=== PATIENT | female | born 1960 | race Caucasian/White ===

== ENCOUNTER → 2019-10-28 07:27 | Outpatient (CLI) | payer OTHER, SELFPAY ==
--- NOTE | ~2019-10-28 | MM_ITS ---
EXAMINATION: MM screening [facility] BI w ferm[facility] HISTORY: Screening mammogram TECHNIQUE: Craniocaudal and mediolateral oblique 3-D tomosynthesis images were obtained and synthetic 2-D images were generated. CAD analysis was submitted and interpreted. COMPARISON: 10/23/2018, 10/21/2017, 10/08/2016 BREAST PARENCHYMAL COMPOSITION: There are scattered areas of fibroglandular density. FINDINGS: RIGHT BREAST: There is possible architectural distortion in the middle third of the upper breast best appreciated 6 cm from the nipple on the mediolateral oblique view. LEFT BREAST: There is no evidence of suspicious mass, calcification, or architectural distortion to s uggest malignancy. There has been no significant interval change. IMPRESSION: 1. Possible right breast architectural distortion. 2. Additional mammographic views and possible breast ultrasound are recommended. BI-RADS Category 0: Incomplete: Needs additional imaging evaluation. Reviewed, dictated and finalized at location A. IMPRESSION: 1. Possible right breast architectural distortion. 2. Additional mammographic views and possible breast ultrasound are recommended . BI-RADS Category 0: Incomplete: Needs additional imaging evaluation.
== END ==
PROVIDERS: PCP Family Medicine; Visit Provider Nurse Practitioner Obstetrics & Gynecology
DX: Z12.31 Encounter for screening mammogram for malignant neoplasm of breast (principal); R92.8 Other abnormal and inconclusive findings on diagnostic imaging of breast
CPT/HCPCS: 77063; 77067

== ENCOUNTER → 2019-11-09 14:18 | Outpatient (CLI) | payer OTHER, SELFPAY ==
--- NOTE | ~2019-11-09 | MMUS_ITS ---
EXAMINATION: MM diagnostic mammo unilat RT, US breast RT limited HISTORY: Follow-up right breast asymmetry TECHNIQUE: Additional 3-D tomosynthesis images of the right breast were performed and synthetic 2-D i mages were generated. CAD analysis was submitted and interpreted. High resolution right breast ultras ound was performed. COMPARISON: Comparison to multiple prior studies sequentially, with oldest reviewed study dated 10/2015. FINDINGS: MAMMOGRAPHIC FINDINGS: Breast composed of scattered areas of fibroglandular density. The right breast asymmetry on MLO view is apparent with spot compression and mediolateral views. No discrete mass is identified. No suspicio us calcifications or definite architectural distortion. ULTRASOUND: Limited right breast ultrasound: At 9:00, 4 cm from the nipple, there is a 3 mm cyst. No suspicious m asses to suggest malignancy. IMPRESSION: 1. No evidence for malignancy in the right breast. 2. Routine yearly screening mammogram and regular clinical breast examination are recommended. BI-RADS Category 2: Benign finding(s). Reviewed, dictated and finalized at location A. IMPRESSION: 1. No evidence for malignancy in the right breast. 2. Routine yearly screening mammogram and regular clinical breast examination a re recommended. BI-RADS Category 2: Benign finding(s).
== END ==
PROVIDERS: PCP Family Medicine; Visit Provider Obstetrics & Gynecology
DX: R92.8 Other abnormal and inconclusive findings on diagnostic imaging of breast (principal)
CPT/HCPCS: 76642; 77065

== ENCOUNTER → 2020-12-14 12:26 | Outpatient (CLI) | payer OTHER, SELFPAY ==
--- NOTE | ~2020-12-14 | MM_ITS ---
EXAMINATION: MM screening [facility] BI w ferm[facility] HISTORY: Screening TECHNIQUE: Craniocaudal and mediolateral oblique 3-D tomosynthesis images were obtained and synthetic 2-D images were generated. CAD analysis was submitted and interpreted. COMPARISON: Comparison to multiple prior studies sequentially, with oldest reviewed study dated 10/2015. BREAST PARENCHYMAL COMPOSITION: There are scattered areas of fibroglandular density. FINDINGS: There is a developing focal asymmetry in the central aspect of the left breast, middle thir d. The right breast is stable without evidence for malignancy. IMPRESSION: 1. Developing focal left breast asymmetry. 2. Additional spot compression and mediolateral views with possible follow-up breast ultrasound recom mended. BI-RADS Category 0: Incomplete: Needs additional imaging evaluation. Reviewed, dictated and finalized at location A. IMPRESSION: 1. Developing focal left breast asymmetry. 2. Additional spot compression and mediolateral views with possible follow-up b reast ultrasound recommended. BI-RADS Category 0: Incomplete: Needs additional imaging evaluation.
== END ==
PROVIDERS: PCP Family Medicine; Visit Provider Obstetrics & Gynecology
DX: Z12.31 Encounter for screening mammogram for malignant neoplasm of breast (principal); R92.8 Other abnormal and inconclusive findings on diagnostic imaging of breast
CPT/HCPCS: 77063; 77067

== ENCOUNTER → 2020-12-26 14:25 | Outpatient (CLI) | payer OTHER, SELFPAY ==
--- NOTE | ~2020-12-26 | MMUS_ITS ---
EXAMINATION: MM diagnostic mammo unilat LT, US breast LT limited HISTORY: Follow-up left breast mass TECHNIQUE: Additional 3-D tomosynthesis images of the left breast were performed and synthetic 2-D im ages were generated. CAD analysis was submitted and interpreted. High resolution Limited left breast ultrasound was performed. COMPARISON: 12/14/2020 BREAST PARENCHYMAL COMPOSITION: Breast composed of scattered areas of fibroglandular density. FINDINGS: MAMMOGRAPHIC FINDINGS: There is a persistent irregularly shaped mass located centrally in the left breast, middle third corie uring approximately 1.3 cm greatest dimension. There are no suspicious calcifications. ULTRASOUND: Limited left breast ultrasound: At 12:00, 3 cm from the nipple, there is an irregular shaped hypoecho ic mass with posterior shadowing measuring 12 x 9 x 12 mm. No internal vascularity. No other masses i dentified. IMPRESSION: 1. Irregular shaped 12 mm left breast mass at 12:00, 3 cm from the nipple corresponding to the mammog raphic finding. 2. Ultrasound-guided left breast biopsy recommended. BI-RADS category 4, suspicious findings. Reviewed, dictated and finalized at location A. IMPRESSION: 1. Irregular shaped 12 mm left breast mass at 12:00, 3 cm from the nipple corre sponding to the mammographic finding. 2. Ultrasound-guided left breast biopsy recommended. BI-RADS category 4, suspicious findings.
== END ==
PROVIDERS: PCP Family Medicine; Visit Provider Nurse Practitioner Obstetrics & Gynecology
DX: R92.8 Other abnormal and inconclusive findings on diagnostic imaging of breast (principal)
CPT/HCPCS: 76642; 77065

== ENCOUNTER → 2021-02-13 09:30 | Outpatient (CLI) | payer BC, SELFPAY ==
[2021-02-13 17:52] LABS: SARS-CoV-2 RNA PCR Negative
== END ==
PROVIDERS: PCP Family Medicine; Visit Provider Family Medicine
DX: J34.89 Other specified disorders of nose and nasal sinuses (principal); R05 Cough; R51.9 Headache, unspecified; Z20.822 Contact with and (suspected) exposure to COVID-19
CPT/HCPCS: C9803; U0003; U0005

== ENCOUNTER 2022-05-14 01:19 | Day surgery (SDC) | payer BC, SELFPAY ==
[2022-05-06 08:47] VITALS: BMI 33.5
[2022-05-14 07:31] VITALS: BP 133/85; PULSE 79; RESP 16; TEMP 36.3; O2SAT 96
[2022-05-14] MEDS: LACTATED RINGERS 1,000 ML 150 ML IV CONT (07:34)
--- NOTE | 2022-05-14 07:59 | WPDANESEPPF ---
Anes - Initial Pre Proc Eval Procedure: Operation Date: 05/14/22 08:30 Proposed Procedures p Esophagogastroduodenoscopy & Screening Colonoscopy - Nando Salinas MD Date/Time: 05/14/22 07:59 Surgeon: Nando Salinas MD Pre Op Diagnosis: GERD, dysphagia, neoplasm screening Patient Data Age: 61 Gender: F Height: 1.73 m Weight: 100.4 kg Last Vital Signs Temp 97.4 F L 05/14/22 07:31 Pulse 79 05/14/22 07:31 Resp 16 05/14/22 07:31 BP 133/85 05/14/22 07:31 Pulse Ox 96 05/14/22 07:31 O2 Del Method Room Air 05/14/22 07:31 Allergies Allergy/AdvReac Type Severity Reaction Status Date / Time benazepril Allergy Unknown cough Verified 05/14/22 07:28 clonidine Allergy Unknown headache, Verified 05/14/22 07:28 confusion Home Medications Medication Instructions Recorded Confirmed Type valacyclovir 1 gram tablet 2,000 mg PO Q12H #36 tabs 01/12/20 05/14/22 Rx mometasone 50 mcg/actuation nasal 2 spray intranasal .COMPLEX #17 07/05/21 05/14/22 Rx spray grams esomeprazole magnesium 20 mg 40 mg PO DAILY #90 caps 03/28/22 05/14/22 Rx capsule,delayed release (Nexium) anastrozole 1 mg tablet 1 mg PO DAILY 05/06/22 05/14/22 History albuterol sulfate 90 mcg/actuation See Rx Instructions .Route 05/09/22 05/14/22 Rx aerosol inhaler .COMPLEX #8.5 grams hydrochlorothiazide 25 mg tablet 25 mg PO DAILY 05/14/22 05/14/22 History metoprolol succinate 100 mg 100 mg PO DAILY 05/14/22 05/14/22 History tablet,extended release 24 hr Patient hx anesthesia problems: none Family hx anesthesia problems: none Results Review: All pre-operative results and documents have been reviewed as part of the pre-operative evaluation. [facility] Past Medical History Medical History Herpes simplex labialis Nicotine dependence, unspecified, in remission Onychomycosis Pain in metacarpus Palpitations Surgical History Surgical History H/O bilateral mastectomy Hx of hysterectomy Family History Family History Father Hypertension Mother Family history of chronic obstructive pulmonary disease Social History Social History Smoking packs per day: 1 Smoking cigarettes per day: 20.0 Years smoked: 12 Smoking pack-years: 12.00 Smoking status: Former smoker Alcohol intake: current Alcohol use details: on occasion Substance use: never Substance use type: does not use Living arrangements: with family Spiritual care concerns: No Anes - Eval Final PreProcedure Day of Procedure 05/14/22 07:59 Patient weight: obese Heart: regular rate and rhythm Lungs: clear to auscultation Airway: Mallampati scale class II Neurological: alert and oriented Last oral intake: >/= 8 hours ASA classification: III Emergent: no Anesthetic plan: proceed Anesthesia type and monitoring: general GIVS and standard monitoring Results Review: All pre-operative results and documents have been reviewed as part of the pre-operative evaluation. Informed Consent: The patient's anesthetic plan and its attendant risks and benefits were discussed with the patient/family/POA. Questions were solicited and answers provided to the satisfaction of the patient/family/POA.
--- NOTE | 2022-05-14 08:09 | PM.HPGS ---
History of Present Illness History of Present Illness Consent: Risks, benefits, and alternatives have been discussed and questions answered. Patient agrees to proceed with procedure. Chief complaint: GERD, dysphagia, neoplasm screening Narrative: Rhona Chapin is a 61 year old female Presents for both colonoscopy and EGD. Patient reports a history of GE reflux disease. Previously maintained on Nexium 1 [id number] pill taken daily. She has had significant breakthrough heartburn and now takes 2 of these pills a day. This appears to control her heartburn. For this reason she is referred for EGD. Patient denies any difficulty swallowing. She has no bleeding. Her weight has remained stable. Additionally colonoscopy is suggested. Last colonoscopy in 2011 was unremarkable. She has recently been diagnosed And treated with breast cancer. Review of Systems Review of Systems: review of systems noncontributory. [facility] Past Medical History Medical History Herpes simplex labialis Nicotine dependence, unspecified, in remission Onychomycosis Pain in metacarpus Palpitations Surgical History Surgical History H/O bilateral mastectomy Hx of hysterectomy Family History Family History Father Hypertension Mother Family history of chronic obstructive pulmonary disease Social History Social History Smoking packs per day: 1 Smoking cigarettes per day: 20.0 Years smoked: 12 Smoking pack-years: 12.00 Smoking status: Former smoker Alcohol intake: current Alcohol use details: on occasion Substance use: never Substance use type: does not use Living arrangements: with family Spiritual care concerns: No Meds Home Medications and Allergies Home Medications Medication Instructions Recorded Confirmed Type valacyclovir 1 gram tablet 2,000 mg PO Q12H #36 tabs 01/12/20 05/14/22 Rx mometasone 50 mcg/actuation nasal 2 spray intranasal .COMPLEX #17 07/05/21 05/14/22 Rx spray grams esomeprazole magnesium 20 mg 40 mg PO DAILY #90 caps 03/28/22 05/14/22 Rx capsule,delayed release (Nexium) anastrozole 1 mg tablet 1 mg PO DAILY 05/06/22 05/14/22 History albuterol sulfate 90 mcg/actuation See Rx Instructions .Route 05/09/22 05/14/22 Rx aerosol inhaler .COMPLEX #8.5 grams hydrochlorothiazide 25 mg tablet 25 mg PO DAILY 05/14/22 05/14/22 History metoprolol succinate 100 mg 100 mg PO DAILY 05/14/22 05/14/22 History tablet,extended release 24 hr Allergies Allergy/AdvReac Type Severity Reaction Status Date / Time benazepril Allergy Unknown cough Verified 05/14/22 07:28 clonidine Allergy Unknown headache, Verified 05/14/22 07:28 confusion Vital Signs Vital Signs - 24 hr 05/14/22 07:31 Temperature 97.4 F L Pulse Rate 79 Respiratory Rate 16 Blood Pressure 133/85 Pulse Oximetry 96 Oxygen Delivery Room Air Exam Narrative: Physical exam reveals patient to be alert. Vital signs stable. HEENT exam is unremarkable. Patient is anicteric. Lungs are clear to auscultation and percussion. Heart is without murmur or extra sounds. Abdomen bowel sounds are present soft nontender with no organomegaly. Digital external rectal exam is normal. Assessment and Plan Assessment and plan (1) GERD with esophagitis: Code(s): K21.00 - Gastro-esophageal reflux disease with esophagitis, without bleeding Status: Acute (2) Encounter for screening colonoscopy: Code(s): Z12.11 - Encounter for screening for malignant neoplasm of colon Status: Acute
--- NOTE | 2022-05-14 09:13 | SUR.OPER ---
EGD start 904 end 907, Colonoscopy start 914 end 925
[2022-05-14 09:32] VITALS: BP 123/79; PULSE 66; RESP 21; O2SAT 97
[2022-05-14 09:42] VITALS: BP 128/84; PULSE 60; RESP 19; O2SAT 98
[2022-05-14 09:52] VITALS: BP 134/83; PULSE 60; RESP 25; O2SAT 99
== END 2022-05-14 10:02 | disposition home or self-care (01) ==
PROVIDERS: PCP Family Medicine; Visit Provider Internal Medicine Gastroenterology
PROC: 0DJ08ZZ Inspection of Upper Intestinal Tract, Via Natural or Artificial Opening Endoscopic (ICD-10-PCS; CPT 43235; principal; 2022-05-14 08:30)
DX: Z12.11 Encounter for screening for malignant neoplasm of colon (principal); K64.8 Other hemorrhoids; K57.30 Diverticulosis of large intestine without perforation or abscess without bleeding; K21.00 Gastro-esophageal reflux disease with esophagitis, without bleeding; R00.2 Palpitations; Z87.891 Personal history of nicotine dependence; Z79.51 Long term (current) use of inhaled steroids; E66.9 Obesity, unspecified; Z68.33 Body mass index [BMI] 33.0-33.9, adult; R12 Heartburn
CPT/HCPCS: 43239; 45378; 87081; J2001; J2704; J7120

== ENCOUNTER 2022-09-26 10:40 | Outpatient (CLI) | payer BC, SELFPAY ==
[2022-09-27 09:15] LABS: Kit Draw Collected
== END 2022-09-26 10:41 | disposition home or self-care (01) ==
LOC: ANHGOSHLAB 10:42
PROVIDERS: PCP Family Medicine; Visit Provider Family Medicine
DX: Z00.00 Encounter for general adult medical examination without abnormal findings (principal); K21.00 Gastro-esophageal reflux disease with esophagitis, without bleeding
CPT/HCPCS: 36415

== ENCOUNTER 2024-02-27 09:57 | Outpatient (CLI) | payer BC, SELFPAY ==
--- NOTE | ~2024-02-27 | MR_ITS ---
EXAMINATION: MR cervical spine wo con DATE: 02/27/2024 11:03 INDICATION: Left arm and hand weakness and pain. TECHNIQUE: Magnetic resonance imaging (MRI) of the cervical spine was performed without intravenous c ontrast. COMPARISON: None FINDINGS: There is 4 degrees levocurvature of cervical spine. There is 2 mm anterolisthesis of C3 on C4 and C5 on C6. Vertebral body heights are normal. There is mildly decreased disc height at C5-C6 an d severely decreased disc height at C6-C7. The spinal cord signal intensity is normal. The following disc levels are specifically discussed: C2-C3: The disc does not extend beyond the endplate margin. There is no uncovertebral joint osteoarth ritis. There is ankylosis of the facet joints with moderate left hypertrophy. There is mild left neur al foraminal stenosis. There is no central canal stenosis. C3-C4: The disc does not extend beyond the endplate margin. There is moderate right and mild left unc overtebral joint osteoarthritis. There is severe bilateral facet joint osteoarthritis. There is moder ate bilateral neural foraminal stenosis. There is no central canal stenosis. C4-C5: There is a central protrusion. There is mild bilateral uncovertebral joint osteoarthritis. The re is severe bilateral facet joint osteoarthritis. There is mild bilateral neural foraminal stenosis. There is no central canal stenosis. C5-C6: The disc is bulging. There is mild bilateral uncovertebral joint osteoarthritis. There is crescencio re bilateral facet joint osteoarthritis. There is mild right and moderate left neural foraminal steno sis. There is mild central canal stenosis with ventral indentation of the spinal cord. C6-C7: The disc is bulging. There is severe bilateral uncovertebral joint osteoarthritis. There is se harsha bilateral facet joint osteoarthritis. There is moderate right and severe left neural foraminal s tenosis. There is moderate central canal stenosis with ventral and dorsal indentation of the spinal c ord. C7-T1: The disc does not extend beyond the endplate margin. There is no uncovertebral joint osteoarth ritis. There is severe right and moderate left facet joint osteoarthritis. There is mild bilateral ne ural foraminal stenosis. There is no central canal stenosis. IMPRESSION: 1. Severe cervical spondylosis. Reviewed, dictated and finalized at location A.
== END 2024-02-27 09:58 ==
LOC: GOSHIMG 09:57
PROVIDERS: PCP Family Medicine; Visit Provider Family Medicine
DX: M79.641 Pain in right hand (principal); M47.892 Other spondylosis, cervical region
CPT/HCPCS: 72141

== ENCOUNTER 2024-11-30 08:44 | Outpatient (CLI) | payer BC, SELFPAY ==
--- OUTSIDE RECORDS SUMMARY | 2024-11-30 09:06 | XMS_ITS ---
Author Organization [facility] Address [address] [place] [id number] Care Team Providers Care Table Inspector Name Role Phone Antonia Bethea MD Primary Care Provider + Petrona Draper [employer] Unavailable [phone] Marsha Henry MD PhD Unavailable [phone] Rajesh Hull MD Unavailable [phone] Active Problems Problem Noted Date Diagnosed Date 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 region 04/08/2024 H/O bilateral mastectomy 10/02/2023 Open wound 07/31/2023 Exposed breast implant 07/29/2023 Postoperative visit 01/09/2022 Encounter for follow-up exam ination after completed treatment for malignant neoplasm 11/22/2021 History of breast cancer 11/22/2021 Personal history of irradiation 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/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 Postoperative cellulitis of surgical wound 05/12 BRCA gene mutation positive in female 04/27/2021 Overview (11/14/2021): [id number] ([id number]) pathogenic Malignant neoplasm of 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, estrogen receptor positive 04/26/2021 Persons encountering health services in other specified circumstances 04/26/2021 Skin necrosis 03/27/2021 Overview (03/27/2021): Added automatically from request for surgery [id number] Malignant neoplasm of overla pping sites of left breast in female, estrogen receptor positive 02/16/2021 Cancer Staging:Clinical stage from 01/23/2021:Stage IIA(cT2, cN0, cM0, G3, ER+, VT+, HER2-) - Signed by Marsha Henry MD PhD on 08/10/2021 Pathologic stage from 03/13/2021:Stage IA(pT1c, pN0(sn), cM0, G3, ER+, VT+, HER2- ) - Signed by Dennys Blanca MD on 04/10/2021 Abnormal mammography 01/22/2021 Snoring 02/28/2015 Insomnia 10/04/2014 Psoriasis 10/04/2014 Sciatica 10/04/2014 Migraine headache 10/04/2014 Hypertension 10/04/2014 Unspecified visual disturbance 10/04/2014 Overview (11/07/2017): Impression: Suggestive of migraine related symptoms, currently controlled with p.r.n. Excedrin. 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 Past Treatment and Therapy Plans Oncology Chemotherapy Treatment Plan Name Start Date Discontinue Date Treatment Medications Discontinue Reason Plan Provider Cycles TC: (DOCEtaxe l / Cyclophos phamide) 21 Day Cycles - Breast 05/17/20 21 08/25/2021 cycloPHOSphamide IVPB in 250 mL (vial 200 mg/mL)([id number])DOCEta xel (TAXOTERE) IVPB in 250 mL (vial 20mg/mL) Therapy Complete Rajesh Hull MD 4 of 4 cycles started Radiation Treatments * Course [id number]/05/2021 - 09/26/2021 Treatment Period Energy Fraction Dose Fractions Total Dose Plans Planned L CW RESCAN 09/21/2021 - 09/26/2021 266 4 / 1,064 L CW LNs DIBH 09/05/2021 - 09/20/2021 266 / ,256 Reference Points Delivered PTV L CW [id number] 09/05/2021 - 09/26/2021 4,256 Lifetime Dose Tracking * Chemical Lifetime Dose Automatic Entry Manual Entr y Fluoro Time 0.6 minutes 0.6 minutes 0 minutes cyclophosphamide 1,174.832 mg/m2 (2,520 mg) 1,174.832 mg/m2 (2,520 mg) 0 mg/m2 (0 mg) Air kerma at the reference point (Ka,r) 1.129 mGy 1.129 mGy 0 mGy DLP 471 mGycm 471 mGycm 0 mGycm Resolved Problems Problem Noted Date Diagnosed Date Resolved Date Malignant neoplasm of left female breast 02/12/2021 11/13/2021 Overview (02/26/2021): Added automatically from request for surgery [id number] Malignant neoplasm of overla pping sites of breast in female, estrogen receptor positive 02/04/2021 02/16/2021
--- OUTSIDE RECORDS SUMMARY | 2024-11-30 09:06 | XMS_ITS | Referral Summary ---
Author Organization [facility] Address [address] [place] [id number] Care Team Providers Care Director Hris Name Role Phone Antonia Bethea MD Primary Care Provider + Petrona Draper PHYSICAL METEOROLOGIST Unavailable + [phone] Marsha Henry MD PhD Unavailable [phone] Rajesh Hull MD Unavailable [phone] Encounters Date Type Department Care Team Description 10/20/2024 8:00 AM CDT - 10/20/2024 11:59 PM CDT Hospital Encounter [facility] [address] [place] [address] [address] [place] [phone] Cervical disc disorder with radiculopathy of cervical region; 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 region; Radiculopathy of cervical region Discharge Disposition: Discharge to home or self care 10/20/2024 8:30 AM CDT Office Visit [facility] Neurosurgery [address] [place] [address] Office Building [address] [place] [address] Maverick Carter PA Radiculopathy of cervical region (Primary Dx); Cervical disc disorder with radiculopathy of cervical region; 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 region; Disease of spinal cord, unspecified (HCC); Osteopenia, unspecified location; Cervical stenosis of spinal canal 10/14/2024 Orders Only [facility] Neurosurgery [address] [place] [address] Office Building [address] [place] [phone] Maverick Carter PA Cervical disc disorder with radiculopathy of cervical region (Primary Dx); 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 region; Radiculopathy of cervical region 10/07/2024 9:00 AM CDT Office Visit [facility] Surgery [address] [place] [address] Floor 8 [place] [phone] Elma Lopez NP H/O bilateral mastectomy (Primary Dx); History of breast cancer; Encounter for follow-up surveillance of breast cancer 10/04/2024 Orders Only [facility] Neurosurgery [facility] Medical Office Building [address] [place] [phone] Maverick Carter PA Cervical disc disorder with radiculopathy of cervical region (Primary Dx); 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 region 09/16/2024 11:00 AM SOLDERING MACHINE OPERATOR AUTOMATIC Office Visit [facility] Oncology [address] [place] [address] 8 [place] [phone] Rajesh Hull MD Hand weakness (Primary Dx); Malignant neoplasm of axillary tail of left breast in female, estrogen receptor positive (HCC); jail current use of aromatase inhibitor 09/16/2024 12:00 PM SOLDERING MACHINE OPERATOR AUTOMATIC Infusion [facility] - Infusion [address] [facility] [address] [place] [address] jail current use of aromatase inhibitor (Primary Dx); Malignant neoplasm of axillary tail of left breast in female, estrogen receptor positive (HCC) 09/16/2024 10:00 AM SOLDERING MACHINE OPERATOR AUTOMATIC Lab [facility] [place] - Lab Collection [facility] 5 [place] [address] Malignant neoplasm of axillary tail of left breast in female, estrogen receptor positive (HCC); 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 from Last 3 Months Allergies Active Allergy Reactions Criticality Noted Date Comments Clonidine Delusions Medium 02/28/2021 Made me nuts Docetaxel Other (See comments) Low 05/31/2021 Back pain reported during infusion Medications metoprolol XL (TOPROL-XL) 100 mg 24 hr tablet take 1 tablet by oral route every day 0 0 05/23/201 6 Active hydroCHLOROthiaz mike (HYDRODIURIL) 25 mg tablet take 1 tablet by oral route every day [address] (NexIUM) 40 mg capsule take 1 capsule by oral route every day 0 0 6 Active albuterol HFA (PROVENTIL HFA,VENTOLIN HFA,PROAIR HFA) 90 mcg/actuation inhalerIndicatio ns:Acute Asthma Attack,Bronchosp asm Prevention,GERD Inhale 2 puffs every 4 (four) hours as needed for wheezing or shortness of breath 1 Active vitamin B complex capsuleIndicatio ns:Vitamin Deficiency Prevention Take 1 capsule by mouth daily after lunch Active cholecalciferol (VITAMIN D-3) 2000 unit capsuleIndicatio ns:supplement Take 1 capsule (2,000 Units total) by mouth daily after lunch Active biotin 10 mg tabletIndication s:supplement Take 1 tablet (10 mg total) by mouth daily after lunch Active docusate sodium (COLACE) 100 mg capsule Take 1 capsule (100 mg total) by mouth every morning 4 Active gabapentin (NEURONTIN) 100 mg capsuleIndicatio ns:Neuropathic Pain Take 1 capsule (100 mg total) by mouth as needed 4 Active zoledronic acid 4 mg/5 mL injection Infuse into a venous catheter every 6 (six) months Active letrozole (FEMARA) 2.5 mg tabletIndication s:Malignant neoplasm of overlapping sites of left breast in female, estrogen receptor positive (HCC),jail current use of aromatase inhibitor Take 1 tablet (2.5 mg total) by mouth daily 90 tablet 3 4 Active acetaminophen (TYLENOL) 500 mg tabletIndication s:Fever,Pain Take 2 tablets (1,000 mg total) by mouth every 6 (six) hours 60 tablet 3 4 Active Additional Information Patient taking differently:1,000 mg oralEvery 6 hours PRN, Indications: Fever, Pain, Reported on 10/20/2024 celecoxib (CeleBREX) 100 mg capsule Take 1 capsule (100 mg total) by mouth daily 4 Active Active Problems Problem Noted Date Diagnosed Date [...] positive in female 04/27/2021 Overview (11/14/2021): [id number] ([id number]) pathogenic Malignant neoplasm of 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, estrogen receptor positive 04/26/2021 Persons encountering health services in other specified circumstances 04/26/2021 Skin necrosis 03/27/2021 Overview (03/27/2021): Added automatically from request for surgery [id number] Malignant neoplasm of overla pping sites of left breast in female, estrogen receptor positive 02/16/2021 Cancer Staging:Clinical stage from 01/23/2021:Stage IIA(cT2, cN0, cM0, G3, ER+, KS+, HER2-) - Signed by Marsha Henry MD PhD on 08/10/2021 Pathologic stage from 03/13/2021:Stage IA(pT1c, pN0(sn), cM0, G3, ER+, KS+, HER2- ) - Signed by Dennys Blanca MD on 04/10/2021 Abnormal mammography 01/22/2021 Snoring 02/28/2015 Insomnia 10/04/2014 Psoriasis 10/04/2014 Sciatica 10/04/2014 Migraine headache 10/04/2014 Hypertension 10/04/2014 Unspecified visual disturbance 10/04/2014 Overview (11/07/2017): Impression: Suggestive of migraine related symptoms, currently controlled with p.r.n. Excedrin. Neuropathy 10/03/2014 Resolved Problems Problem Noted Date Diagnosed Date Resolved Date Malignant neoplasm of left female breast 02/12/2021 11/13/2021 Overview (02/26/2021): Added automatically from request for surgery [id number] Malignant neoplasm of overla pping sites of breast in female, estrogen receptor positive 02/04/2021 02/16/2021 Immunizations Immunization Administration Dates Next Due Hep A, Adult 01/13/2019 Influenza, Quadrivalent, Spl it, Preservative Free, Intramuscular 06/12/2023,04/18/2020,08/27/2018 Influenza, Trivalent, Preser vative Free, Intramuscular 06/22/2024(Deferred: Patient Refused - Patient already had) Influenza, Unspecified 04/27/2021 Pfizer SARS-CoV-2 Monovalent Vaccination (12+ Yrs) ESPINOZA-READY TO USE 11/28/2021 Pfizer SARS-CoV-2 Monovalent Vaccination (12+ Yrs) PURPLE 04/30/2021,10/15/2020,10/15/2020,09/23,09/23/2020 Tdap 04/25/2016 Social History Tobacco Use Types Packs/Day Years Used Date Smoking Tobacco: Former Cigarettes 1 10.4 1 973 - 12/08/1982 Passive Smoke Exposure: Past Smokeless Tobacco: Never Tobacco Cessation:Counseling Given: No Alcohol Use Standard Drinks/Week Comments Yes 0 (1 standard drink = 0.6 oz pur e alcohol) AUDIT-C Answer Date Recorded Q1: How often do you have a drink containing alc ohol? 2-4 times a month 06/21/2024 Q2: How many drinks containi ng alcohol do you have on a typical day when you are drinking? 1 or 2 06/21/2024 Q3: How often do you have si x or more drinks on one occasion? Never 06/21/2024 Personal Safety Answer Date Recorded Have you ever been in or are you currently in a harmful physical or emotional relationship or is someone making you feel afraid or unsafe? Denies 06/21/2024 Comments No Sex and Gender Information Value Date Recorded Sex Assigned at Not on file Legal Sex Female 3:42 AM SOLDERING MACHINE OPERATOR AUTOMATIC Gender Identity Female 03/11/2023 9:10 AM CDT Sexual Orientation Straight 03/23/2021 12 :59 PM CDT Last Filed Vital Signs Vital Sign Reading Time Taken Comments Blood Pressure 131/87 09/16/2024 10:40 AM SOLDERING MACHINE OPERATOR AUTOMATIC Pulse 78 09/16/2024 10:40 AM SOLDERING MACHINE OPERATOR AUTOMATIC Temperature 36.7 C (98.1 F) 09/16/2024 10:40 AM SOLDERING MACHINE OPERATOR AUTOMATIC Respiratory Rate 16 09/16/2024 10:40 AM SOLDERING MACHINE OPERATOR AUTOMATIC Oxygen Saturation 99% 09/16/2024 10:40 AM SOLDERING MACHINE OPERATOR AUTOMATIC Inhaled Oxygen Concentration - - Weight 97.5 kg (215 lb) 10/20/2024 8:19 AM CDT Height 169.5 cm (5' 6.75 ) 10/20/2024 8:19 AM CD T Body Mass Index 33.93 10/20/2024 8:19 AM CDT Plan of Treatment Not on file Medical Devices Implanted Type Area Switch Engineer Device Identifier Shelf Expiration Date Model / Serial / Lot [employer] Natrelle Inspira Cohesive Implant 800cc Breast Sterile Latex Free Scx-800 - [id number] - [id number] Implanted:Qty: 1 on 06/11/2022 by Erika Chris MD at [facility] Breast Right: Breast [employer] [id number] 12/04/2026 SCX-800 / [id number] / [employer] Natrelle Inspira Smooth Shell Surface Full Profile Implant 770cc Latex Free Ssf-770 - [id number] - [id number] Implanted:Qty: 1 on 08/06/2023 by Pablo Cerna MD at [facility] Breast Left: Breast [employer] 02/17/2028 SSF-770 / [id number] / [id number] Description:Implant pause do ne prior to opening implant [employer] [id number] Alloderm Select 43x41sc Allograft Regenerative Freeze Dried - S0 - [id number] Implanted:Qty: 1 on 03/13/2021 by Erika Chris MD at [facility] Other - see comments Left: Breast [employer] 08/27/2022 [id number] / 0 / [id number] Description:alloderm [employer] [id number] Alloderm Select 47t50rl Allograft Regenerative Freeze Dried - S0 - [id number] Implanted:Qty: 1 on 03/13/2021 by Erika Chris MD at [facility] Other - see comments Right: Breast [employer] 08/27/2022 [id number] / 0 / [id number] Ovelinr [employer] [id number] Magtrace Liquid Marker 10 Vial Carton - S0 - [id number] Implanted:Qty: 1 on 03/13/2021 by Dara Garcia MD PhD at [facility] Bilateral: Breast [employer] 12/25/2022 [id number] / 0 / [id number] Angio Dynamics [id number] Xcela 8fr 1.6mm 1 Lumen Power Injectable Attach Catheter Fill - [id number] Implanted:Qty: 1 on 05/28/2021 at [facility] Angio Dynamics 02/05/2026 [id number] / / [id number] [employer] Alloderm Select 71v39ke Allograft Regenerative Freeze Dried [id number] - [id number] Implanted:Qty: 1 on 12/11/2021 by Erika Chris MD at [facility] Right: Breast [employer] [id number] 01/24/2023 [id number] / / [id number] Globus Implanted:Qty: 1 on 06/21/2024 by Leo Law MD at [facility] N/A: Spine Cervical GLOBUS [id number] / / Nuvasive Inc Cage Spinal Modulus Cervical [id number] 7 Deg [id number] - [id number] Implanted:Qty: 1 on 06/21/2024 at [facility] N/A: Cervical-T horacic Spine Nuvasive Inc 02/09/2029 [id number] / / [id number] Cerapedics Inc Graft Bone Filler Peptide Enhanced Syr I Factor 1cc Putty 700-010 - [id number] Implanted:Qty: 1 on 06/21/2024 at [facility] N/A: Spine Cervical Cerapedics Inc 05/27/2026 700-010 / / [id number] Nuvasive Inc Plate Spine Anterior Cervical Level 2 1.9 Hole Acp 38mm Titanium [id number] - [id number] Implanted:Qty: 1 on 06/21/2024 at [facility] N/A: Cervical-T horacic Spine Nuv[employer] Inc [id number] / / Nuvasive Inc Cage Spinal Modulus Cervical 2o09t88ri 7 Deg [id number] - [id number] Implanted:Qty: 1 on 06/21/2024 at [facility] N/A: Spine Cervical Nuvasive Inc 04/20/2029 [id number] / / [id number] Nuvasive Inc Screw Spinal Anterior Cervical Self Drilling Solid Acp 3.5x15mm [id number] - [id number] Implanted:Qty: 4 on 06/21/2024 by Leo Law MD at [facility] N/A: Spine Cervical Nuvasive Inc [id number] / / [id number] Implanted:Qty: 1 on 06/21/2024 by Leo Law MD at [facility] N/A: Spine Cervical Globus Medical [id number] / / Explanted Type Area Switch Engineer Device Identifier Shelf Expiration Date Model / Serial / Lot [employer] 038d-[id number]-T Implant Mammary Natrelle Te Smooth 069z-Ly-31-T With Fourte - [id number] - [id number] Implanted:Qty : 1 on 03/13/2021 by Erika Chris MD at [facility] Explanted:Qty : 1 on 05/15/2021 by Erika Chris MD at [facility] Breast Right: Breast [employer] [id number] 08/14/2024 133S-MX-1 5-T / [id number] / [id number] [employer] 145k-Gp-57-T Implant Mammary Natrelle Te Smooth 510u-Rd-70-T With Fourte - [id number] - [id number] Implanted:Qty : 1 on 03/13/2021 by Erika Chris MD at [facility] Explanted:Qty : 1 on 06/11/2022 by Erika Chris MD at [facility] Breast Left: Breast [employer] [id number] 07/23/2024 133S-MX-1 5-T / [id number] / [id number] [employer] Implant Mammary Natrelle Te Smooth 140v-Jl-21-T With Fourte 736y-Pv-40-T - [id number] - [id number] Implanted:Qty : 1 on 12/11/2021 by Erika Chris MD at [facility] Explanted:Qty : 1 on 06/11/2022 by Erika Chris MD at [facility] Breast Right: Breast [employer] [id number] 12/18/2024 133S-MX-1 5-T / [id number] / [id number] [employer] Natrelle Inspira Cohesive Implant 800cc Breast Sterile Latex Free Scx-800 - [id number] - [id number] Implanted:Qty : 1 on 06/11/2022 by Erika Chris MD at [facility] Explanted:Qty : 1 on 06/11/2023 by Pablo Cerna MD at [facility] Breast Left: Breast [employer] [id number] 12/04/2026 SCX-800 / [id number] / Description:#[id number], 800cc [employer] Natrelle Inspira Smooth Shell Surface Full Profile Implant 770cc Latex Free Ssf-770 - [id number] - [id number] Implanted:Qty : 1 on 06/11/2023 by Pablo Cerna MD at [facility] Explanted:Qty : 1 on 08/06/2023 by Pablo Cerna MD at [facility] Breast Left: Breast [employer] 04/03/2027 SSF-770 / [id number] / [id number] Description:Implant pause do ne prior to opening Procedures Procedure Name Priority Date/Time Associated Diagnosis Comments XR SPINE CERVICAL COMPLETE 4 OR 5 VW Schedule Routine, Read Routine (OP Routine) 10/20/2024 8:11 AM CDT Cervical disc disorder with radiculopathy of cervical region 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 region Radiculopathy of cervical region EGFR Routine 09/16/2024 10:23 AM SOLDERING MACHINE OPERATOR AUTOMATIC Malignant neoplasm of axillary tail of left breast in female, estrogen receptor positive (HCC) 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 COMPREHENSIVE METABOLIC PANEL Routine 09/16/2024 10:23 AM SOLDERING MACHINE OPERATOR AUTOMATIC Malignant neoplasm of axillary tail of left breast in female, estrogen receptor positive (HCC) 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 VITAMIN D 25 HYDROXY Routine 09/16/2024 10:23 AM SOLDERING MACHINE OPERATOR AUTOMATIC Malignant neoplasm of axillary tail of left breast in female, estrogen receptor positive (HCC) jail current use of aromatase inhibitor DEXA AXIAL SKELETON BONE DENSITY 1 OR MORE SITES Schedule Routine, Read Routine (OP Routine) 09/08/2023 8:36 AM SOLDERING MACHINE OPERATOR AUTOMATIC Malignant neoplasm of overlapping sites of left breast in female, estrogen receptor positive (HCC) Malignant neoplasm of axillary tail of left breast in female, estrogen receptor positive (HCC) from Last 3 Months or Most Recently Relevant to Health Maintenance Results * XR Spine Cervical Complete 4 or 5 Views (10/20/2024 8:11 AM CDT) Anatomical Region Laterality Modality Spine N/A Computed Radiogr aphy 10/20/2024 8:32 AM CDT Impressions 10/20/2024 8:32 AM CDT 1. Cervical discectomy and anterior spinal fusion at C5-C7 appears intact. Electronically signed by: Matthew Hollingsworth D.O. Narrative 10/20/2024 8:32 AM CDT EXAMINATION: XR SPINE CERVICAL COMPLETE 4 OR 5 VW HISTORY: Cervical fusion FINDINGS: Comparison made to 08/04/2024 radiograph. Cervical discectomy and instrumented fusion from C5 through C7 appears intact. Mild static stepwise anterolisthesis of C3 on C4 and C4 on C5 is unchanged. Precervical soft tissues are within normal limits. Vertebral body heights are maintained. Moderate to severe multilevel facet arthropathy. Mild degenerative disc disease at the nonfused levels. Procedure Note Matthew Hollingsworth, DO - 10/20/2024 EXAMINATION: XR SPINE CERVICAL COMPLETE 4 OR 5 VW HISTORY: Cervical fusion FINDINGS: Comparison made to 08/04/2024 radiograph. Cervical discectomy and instrumented fusion from C5 through C7 appears intact. Mild static stepwise anterolisthesis of C3 on C4 and C4 on C5 is unchanged. Precervical soft tissues are within normal limits. Vertebral body heights are maintained. Moderate to severe multilevel facet arthropathy. Mild degenerative disc disease at the nonfused levels. IMPRESSION: 1. Cervical discectomy and anterior spinal fusion at C5-C7 appears intact. Electronically signed by: Matthew Hollingsworth D.O. us Maverick SUERO IMG XR PROCEDURES Final R esult * eGFR (09/16/2024 10:23 AM SOLDERING MACHINE OPERATOR AUTOMATIC) eGFR >90 >=60 mL/min/1. 73 m2 Comment: Interpretive Data Reference Interval Normal >/= 90 mL/min/1.73m2 Mildly decreased* 60 - 89 mL/min/1.73m2 Mildly to moderately decreased 45 - 59 mL/min/1.73m2 Moderately to severely decreased 30 - 44 mL/min/1.73m2 Severely decreased 15 - 29 mL/min/1.73m2 Kidney Failure < 15 mL/min/1.73m2 *Relative to young adult level Estimated glomerular filtration rate is determined by the 2020 CKD-EPI equation recommended by the National Kidney Foundation (A Unifying Approach to GFR Estimation: Recommendations of the NKF-ASK Task Force on Reassessing the Inclusion of Race in Diagnosing Kidney Disease, JASN 202). The CKD-EPI equation should not be used for patients with unstable renal function and has not been validated in children and those over 70. Current interpretive data was last reviewed 2021. Blood 09/16/2024 10:2 3 AM SOLDERING MACHINE OPERATOR AUTOMATIC 09/16/2024 10:26 AM SOLDERING MACHINE OPERATOR AUTOMATIC us Rajesh Hull MD LAB BLOOD ORDERABLES Final Result [facility] [place] [address] * Vitamin D 25 hydroxy (09/16/2024 10:23 AM SOLDERING MACHINE OPERATOR AUTOMATIC) Vitamin D 25-OH 33 30 - 80 ng/mL Blood 09/16/2024 10:2 3 AM SOLDERING MACHINE OPERATOR AUTOMATIC 09/16/2024 10:26 AM SOLDERING MACHINE OPERATOR AUTOMATIC Rajesh Hull MD LAB BLOOD ORDERABLES Final Result [facility] [place] [address] * Comprehensive metabolic panel (09/16/2024 10:23 AM SOLDERING MACHINE OPERATOR AUTOMATIC) Pathologist [facility] Sodium 142 135 - 145 mmol/L Potassium, pl 4.1 3.3 - 4.9 mmol/L [facility] Chloride 106 97 - 110 mmol/L [facility] CO2 29 22 - 32 mmol/L [facility] Anion gap 7 2 - 15 mmol/L [facility] BUN 12 6 - 25 mg/dL [facility] Creatinine 0.63 0.60 - 1.10 mg/dL [facility] Glucose 96 70 - 199 mg/dL [facility] Comment: Interpretive Data Fasting glucose >/= 126 mg/dl is diagnostic for diabetes. Fasting is defined as no caloric intake for at least 8 hours. Fasting glucose between 100 mg/dl to 125 mg/dl is diagnostic of prediabetes. In a patient with classic symptoms of hyperglycemia or hyperglycemic crisis, a random glucose >/= 200 mg/dl is diagnostic for diabetes. In the absence of unequivocal hyperglycemia, results should be confirmed by repeat testing. The classification and Diagnosis of Diabetes Diabetes Care 2021; 46: S19-S40. Current interpretive data was last revised 2022. Calcium 9.8 8.5 - 10.3 mg/dL [facility] Bilirubin, total 0.4 0.1 - 1.2 mg/dL [facility] Protein, pl 7.0 6.5 - 8.5 g/dL [facility] Albumin 4.1 3.5 - 5.0 g/dL [facility] Alk phos 93 40 - 130 Units/L [facility] ALT 18 7 - 45 Units/L [facility] AST 20 10 - 45 Units/L [facility] Blood 09/16/2024 10:2 3 AM SOLDERING MACHINE OPERATOR AUTOMATIC 09/16/2024 10:26 AM SOLDERING MACHINE OPERATOR AUTOMATIC us Rajesh Hull MD LAB BLOOD ORDERABLES Final Result [facility] [place] [address] * Dexa Axial Skeleton Bone Density 1 or 2 Site (09/08/2023 8:36 AM SOLDERING MACHINE OPERATOR AUTOMATIC) Anatomical Region Laterality Modality Body N/A Radiographic Usha ging Narrative 09/08/2023 8:48 AM SOLDERING MACHINE OPERATOR AUTOMATIC Patient Name: Rhona Chapin Date of : 1960 Date of scan: 09/08/2023 Bone mineral density was performed on a [employer] Discovery Densitometer. Based on machine cross-calibration and precision studies the least significant changes of this densitometer is 0.024 g/cm2 at the spine, 0.020 g/cm2 at the total proximal femur, and 0.014g/cm2 at the forearm. HISTORY: This is a 62 y.o. postmenopausal female with a history of asthma, breast cancer, and low bone mass. She reports that she quit smoking about 40 years ago. Her smoking use included cigarettes. She started smoking about 51 years ago. She smoked an average of 1 pack per day. She has been exposed to tobacco smoke. She has never used smokeless tobacco. Currently on treatment with calcium, vitamin D, zoledronic acid (Zometa), and aromatase inhibitor and current complaint of back pain. INDICATIONS: Menopause status, treatment monitoring, aromatase inhibitor therapy, and history of low bone mass. FINDINGS: BONE MINERAL DENSITY OF THE LUMBAR SPINE Bone Mineral Density (BMD) of the lumbar spine was measured from L1-L3 and the average density was calculated to be 0.987 gm/cm2. This corresponds to a T-score (standard deviations from the mean of young adults) of -0.3. When compared to the previous study of 03/08/21 there has been a 0.062 gm/cm (6.7%) increase in bone density that is considered significant. BONE MINERAL DENSITY OF THE PROXIMAL FEMUR Bone Mineral Density (BMD) of the left hip total was found to be 0.830 gm/cm2. This corresponds to a T-score standard deviations from the mean of young adults of -0.9. Femoral neck is 0.688 gm/cm2 with a T-score (standard deviations from the mean of young adults) of -1.5. When compared to the previous study of 03/08/21 there has been no significant changes in bone density. SUMMARY: Bone mineral density shows evidence of low bone mass at the proximal femur and moderately increased fracture risk (Osteopenia). There has been a significant increase in bone density since previous measurement. L4 excluded from bone mineral density analysis of the lumbar spine because of bone density being more than 1 standard deviation discrepant relative to one adjacent vertebra. Clinical correlation is recommended. ADDITIONAL COMMENTS: Postmenopausal Women and Men Over 50: Diagnostic criteria: Osteoporosis: BMD at or below -2.5 T-score; Osteopenia (low bone mass): BMD between -1.0 and -2.5 T-score. If the patient has a history of a fragility fracture, a fracture that occurred with trauma equivalent to a fall from a standing position or less, then the diagnosis is osteoporosis regardless of bone density. The history and data sections of the bone mineral density scan were prepared by Nelly Fowler who is accredited by the International Society of Clinical Densitometry. The overall patient assessment and scan interpretation were performed by Rosa Maria Brumfield M.D. who is certified by the International Society of Clinical Densitometry. [id number] Rajesh Hull MD IMG DXA PROCEDURES Final R esult from Last 3 Months or Most Recently Relevant to Health Maintenance Insurance ANTH ACCESS CHOICE [facility] CHOICE [facility]US [facility] OOS ANTHEM TRADITIONAL ANTHEM ACCESS CHOICE Advance Directives For more information, please contact: [phone] * Full Code (Latest Code Status on File) Date Activated Date Inactivated Comments 06/21/2024 11:03 AM 06/22/2024 3:39 PM * Full Code Date Activated Date Inactivated Comments 06/11/2023 6:10 PM 06/12/2023 1:27 PM * Full Code Date Activated Date Inactivated Comments 09/11/2021 12:35 PM 09/11/2021 6:14 PM * Full Code Date Activated Date Inactivated Comments 05/12/2021 11:48 PM 05/16/2021 3:09 PM * Full Code Date Activated Date Inactivated Comments 03/13/2021 8:29 PM 03/15/2021 8:58 PM Care Teams Director Hris Relationship Specialty Start Date End Date Antonia Bethea MD PCP - General 12/18/15 Petrona Draper NP Nurse Practitioner Nurse Practitioner 01/05/21 Marsha Henry MD PhD [address] [facility] # LL LL [address] [place] [address] Radiation Oncologist Radiation Oncology 04/10/21 Rajesh Hull MD [address] [place] [address] Medical Oncologist/Analysis Reporting Developer Medical Oncology 02/22/21
--- OUTSIDE RECORDS SUMMARY | 2024-11-30 09:06 | XMS_ITS | Encounter Summary ---
Author Organization [facility] Address [address] [place] [address] Phone Care Team Providers Care Street Worker Name Role Phone Antonia Bethea MD Primary Care Provider + Petrona Draper PRODUCTION ROUSTABOUT Unavailable [phone] Marsha Henry MD PhD Unavailable [phone] Rajesh Hull MD Unavailable [phone] Encounter Details Date Type Department Care Team (Latest Contact Info) Description 01/31/2021 Orders Only [facility] Scanning, Provider Social History Tobacco Use Types Packs/Day Years Used Date Smoking Tobacco: Former Cigarettes Q uit: 12/08/1982 Alcohol Use Standard Drinks/Week Comments Yes 0 (1 standard drink = 0.6 oz pur e alcohol) Comments No Sex and Gender Information Value Date Recorded Sex Assigned at Not on file Legal Sex Female 3:42 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 Gender Identity Female 03/11/2023 9:10 AM CDT Sexual Orientation Straight 03/23/2021 12 :59 PM CDT documented as of this encounter Plan of Treatment Not on file documented as of this encounter Procedures Procedure Name Priority Date/Time Associated Diagnosis Comments SCAN - LABS 01/31/2021 documented in this encounter Results * SCAN - LABS (01/31/2021) us Provider Scanning Final Result documented in this encounter Visit Diagnoses Not on filedocumented in this encounter Care Teams Street Worker Relationship Specialty Start Date End Date Antonia Bethea MD PCP - General 12/18/15 Petrona Draper NP Nurse Practitioner Nurse Practitioner 01/05/21 Marsha Henry MD PhD [address] [facility] # LL LL [address] [place] [address] Radiation Oncologist Radiation Oncology 04/10/21 Rajesh Hull MD [address] [place] [address] Medical Oncologist/Circular Tank Cooper Medical Oncology 02/22/21 documented as of this encounter
--- OUTSIDE RECORDS SUMMARY | 2024-11-30 09:06 | XMS_ITS | Clinical Summary ---
Author Organization [facility] Address [address] [place] [address] Care Team Providers Care Floating Operator Name Role Phone Antonia Bethea MD Primary Care Provider + Petrona Draper BATTERY PLATE REMOVER Unavailable [phone] Marsha Henry MD PhD Unavailable [phone] Rajesh Hull MD Unavailable [phone] Allergies Active Allergy Reactions Criticality Noted Date Comments Clonidine Delusions Medium 02/28/2021 Made me nuts Docetaxel Other (See comments) Low 05/31/2021 Back pain reported during infusion Medications metoprolol XL (TOPROL-XL) 100 mg 24 hr tablet take 1 tablet by oral route every day 0 0 6 Active hydroCHLOROthiaz mike (HYDRODIURIL) 25 mg [...] left breast in female, estrogen receptor positive (HCC),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 Take 1 [...] cancer 11/22/2021 Personal history of irradiation 11/22/2021 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 Postoperative cellulitis of surgical wound 05/12 BRCA gene mutation positive in female 04/27/2021 Overview (11/14/2021): [id number] (p.[id number]) pathogenic Malignant neoplasm of 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, estrogen receptor positive 04/26/2021 Persons encountering health services in other specified circumstances 04/26/2021 Skin necrosis 03/27/2021 Overview (03/27/2021): Added automatically from request for surgery [id number] Malignant neoplasm of overla pping sites of left breast in female, estrogen receptor positive 02/16/2021 Cancer Staging:Clinical stage from 01/23/2021:Stage IIA(cT2, cN0, cM0, G3, ER+, TN+, HER2-) - Signed by Marsha Henry MD PhD on 08/10/2021 Pathologic stage from 03/13/2021:Stage IA(pT1c, pN0(sn), cM0, G3, ER+, TN+, HER2- ) - Signed by Dennys Blanca [...] (02/26/2021): Added automatically from request for surgery [id number] Malignant neoplasm of overla pping sites of breast in female, estrogen receptor positive 02/04/2021 02/16/2021 Encounters Date Type Department Care Team Description 10/20/2024 8:30 AM CDT Office Visit [facility] Neurosurgery [address] [place] [address] Medical Office Building [address] [place] [address] Maverick Carter PA Radiculopathy of cervical region (Primary Dx); Cervical disc disorder with radiculopathy of cervical region; 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 region; Disease of spinal cord, unspecified (HCC); Osteopenia, unspecified location; Cervical stenosis of spinal canal 10/20/2024 8:00 AM CDT - 10/20/2024 11:59 PM CDT Hospital Encounter [facility] [address] [facility] [address] [place] [address] Cervical disc disorder with radiculopathy of cervical region; 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 region; Radiculopathy of cervical region Discharge Disposition: Discharge to home or self care 10/14/2024 Orders Only [facility] Neurosurgery [address] [place] [address] Medical Office Building [address] [place] [address] Maverick Carter PA Cervical disc disorder with radiculopathy of cervical region (Primary Dx); 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 region; Radiculopathy of cervical region 10/07/2024 9:00 AM CDT Office Visit [facility] Surgery [address] [place] [address] [address] [place] [phone] Elma Lopez NP H/O bilateral mastectomy (Primary Dx); History of breast cancer; Encounter for follow-up surveillance of breast cancer 10/04/2024 Orders Only [facility] Neurosurgery [address] [place] [address] Medical Office Building [address] [place] [phone] Maverick Carter PA Cervical disc disorder with radiculopathy of cervical region (Primary Dx); 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 region 09/16/2024 12:00 PM TEMPLATE CLERK Infusion [facility] - Infusion [address] [place] [address] Floor 6 [place] [address] 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 (Primary Dx); Malignant neoplasm of axillary tail of left breast in female, estrogen receptor positive (HCC) 09/16/2024 11:00 AM TEMPLATE CLERK Office Visit [facility] Oncology [address] [place] [address] Floor [address] [place] [phone] Rajesh Hull MD Hand weakness (Primary Dx); Malignant neoplasm of axillary tail of left breast in female, estrogen receptor positive (HCC); 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 09/16/2024 10:00 AM TEMPLATE CLERK Lab [facility] - Lab Collection [address] [facility] Floor [address] [place] [address] Malignant neoplasm of axillary tail of left breast in female, estrogen receptor positive (HCC); 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 from Last 3 Months Immunizations Immunization Administration Dates Next Due Hep A, Adult 01/13/2019 Influenza, Quadrivalent, Spl it, Preservative Free, Intramuscular 06/12/2023,04/18/2020,08/27/2018 Influenza, Trivalent, Preser vative Free, Intramuscular 06/22/2024(Deferred: Patient Refused - Patient already had) Influenza, Unspecified 04/27/2021 Pfizer SARS-CoV-2 Monovalent Vaccination (12+ Yrs) ESPINOZA-READY TO USE 11/28/2021 Pfizer SARS-CoV-2 Monovalent Vaccination (12+ Yrs) PURPLE 04/30/2021,10/15/2020,10/15/2020,09/23,09/23/2020 Tdap 04/25/2016 Surgical History Surgery Date Site/Laterality Comments TUBAL LIGATION 07/28/1999 - 07/27/2000 HYSTERECTOMY 07/28/2000 - 07/27/2001 BREAST BIOPSY 07/28/2002 - 07/27/2003 BREAST BIOPSY 07/28/2014 - 07/27/2015 BREAST BIOPSY 01/23/2021 Left COLONOSCOPY 04/27/2022 - 05/27/2022 and EGD MASTECTOMY 03/13/2021 Bilateral TISSUE REAL ESTATE CLERK PLACEMENT 03/13/2021 Bilateral PORT PLACEMENT CHEST >5 YEARS 05/28/2021 N/A PORT REMOVAL 09/11/2021 N/A TISSUE REAL ESTATE CLERK REMOVAL 04/27/2021 - 05/27/2021 Right BREAST SURGERY 03/28/2021 - 04/26/2021 Right OVARY SURGERY 12/11/2021 BREAST RECONSTRUCTION multiple BREAST SURGERY 12/26/2022 - 01/24/2023 fat grafting BREAST SURGERY 05/28/2023 - 06/26/2023 Left LEFT LATISSIMUS DORSI FLAP ANTERIOR CERVICAL DISCECTOMY W/ FUSION 06/21/2024 Medical History Medical History Date Comments Hypertension Hypertension Heart valve disease Valvular dis ease Gastroesophageal reflux disease GERD Migraine Breast cancer (HCC) Open wound 07/31/2023 Family History Medical History Relation Name Comments Hypertension Father Breast cancer Father's Sister 1 Breast cancer Father's Sister 2 Breast cancer Father's Sister 3 Breast cancer Father's Sister 4 COPD Mother Anesthesia problems Neg Hx Relation Name Status Comments Father Father's Sister 1 Father's Sister 2 Father's Sister 3 Father's Sister 4 Mother Alive Social History Tobacco Use Types Packs/Day Years [...] on file Legal Sex Female 3:42 AM TEMPLATE CLERK Gender Identity Female 03/11/2023 9:10 AM CDT Sexual Orientation Straight 03/23/2021 12 :59 PM CDT Obstetrics History Para Term AB IAB SAB Ectopic Multiple Livin g Live Births 2 1 1 1 1 1 1 Date Outcome GA Total Labor Labor/2nd/3rd Weight Sex Type Anes PTL Gilda A1 A5 Name Clin Term SAB Last Filed Vital Signs Vital Sign Reading Time Taken Comments Blood Pressure 131/87 09/16/2024 10:40 AM TEMPLATE CLERK Pulse 78 09/16/2024 10:40 AM TEMPLATE CLERK Temperature 36.7 C (98.1 F) 09/16/2024 10:40 AM TEMPLATE CLERK Respiratory Rate 16 09/16/2024 10:40 AM TEMPLATE CLERK Oxygen Saturation 99% 09/16/2024 10:40 AM TEMPLATE CLERK Inhaled Oxygen Concentration - - Weight 97.5 kg (215 lb) 10/20/2024 8:19 AM CDT Height 169.5 cm (5' 6.75 ) 10/20/2024 8:19 AM CD T Body Mass Index 33.93 10/20/2024 8:19 AM CDT Plan of Treatment Health Maintenance Due Date Last Done Comments Breast Cancer Screening-Mammogram 1960 Colon Cancer Screening-Colonoscopy 1960 Depression Screening 1960 Hepatitis C Screening 1960 Hepatitis B Screening 11/17/1977 Pneumococcal vaccine 65+ (1 of 2 - PCV) 11/17/1978 Zoster Vaccine (1 of 2) 11/17/1978 Covid-19 Vaccine (2023-2 5 season) 2024 11/28/2021, 04/30/2021, 10/15/2020, Additional history exists Well Visit 65+ 11/17/2024 Influenza Vaccine (Season Ended) 2025 06/12/2023, 04/27/2021, 04/18/2020, Additional history exists Fall Risk Assessment 06/22/2025 06/22/2024, 04/13/20 Osteoporosis Screening-Bone Density Scan 09/08/2025 09/08/2023, 03/08/2021 DTaP/Tdap/Td Vaccine (2 - Td or Tdap) 04/25/2026 04/25/2016 Medical Devices Implanted Type Area 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[employer] 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 Device Identifier Shelf Expiration Date Model / Serial / Lot [employer] Natrelle Inspira Cohesive Implant 800cc Breast Sterile Latex Free Scx-800 - [id number] - [id number] Implanted:Qty: 1 on 06/11/2022 by Erika Chris MD at [facility] Breast Right: Breast [employer] [id number] 12/04/2026 SCX-800 / [id number] / [employer] Natrelle Inspira Smooth Shell Surface Full Profile Implant 770cc Latex Free Ssf-770 - [id number] - [id number] Implanted:Qty: 1 on 08/06/2023 by Pablo Cerna MD at [facility] Breast Left: Breast [employer] 02/17/2028 SSF-770 / [id number] / [id number] Description:Implant pause do ne prior to opening implant [employer] [id number] Alloderm Select 84j89au Allograft Regenerative Freeze Dried - S0 - [id number] Implanted:Qty: 1 on 03/13/2021 by Erika Chris MD at [facility] Other - see comments Left: Breast [employer] 08/27/2022 [id number] / 0 / [id number] Description:alloderm [employer] [id number] Alloderm Select 42v01aa Allograft Regenerative Freeze Dried - S0 - [id number] Implanted:Qty: 1 on 03/13/2021 by Erika Chris MD at [facility] Other - see comments Right: Breast [employer] 08/27/2022 [id number] / 0 / [id number] [employer] Inc [id number] Magtrace Liquid Marker 10 Vial Carton - S0 - [id number] Implanted:Qty: 1 on 03/13/2021 by Dara Garcia MD PhD at [facility] Bilateral: Breast [employer] 12/25/2022 [id number] / 0 / [id number] Angio Dynamics [id number] Xcela 8fr 1.6mm 1 Lumen Power Injectable Attach Catheter Fill - [id number] Implanted:Qty: 1 on 05/28/2021 at [facility] Angio Dynamics 02/05/2026 [id number] / / [id number] Aller[employer] Alloderm Select 45g22gm Allograft Regenerative Freeze Dried [id number] - [id number] Implanted:Qty: 1 on 12/11/2021 by Erika Chris MD at [facility] Right: Breast [employer] [id number] 01/24/2023 [id number] / / [id number] Globus Implanted:Qty: 1 on 06/21/2024 by Leo Law MD at [facility] N/A: Spine Cervical GLOBUS [id number] / / Nuvasive Inc Cage Spinal Modulus Cervical [id number] 7 Deg [id number] - [id number] Implanted:Qty: 1 on 06/21/2024 at [facility] N/A: Cervical-T horacic Spine Nuvasive Inc 02/09/2029 [id number] / / [id number] Cerapedics Inc Graft Bone Filler Peptide Enhanced Syr I Factor 1cc Putty 700-010 - [id number] Implanted:Qty: 1 on 06/21/2024 at [facility] N/A: Spine Cervical Cerapedics Inc 05/27/2026 700-010 / / [id number] Nuvasive Inc Plate Spine Anterior Cervical Level 2 1.9 Hole Acp 38mm Titanium [id number] - [id number] Implanted:Qty: 1 on 06/21/2024 at [facility] N/A: Cervical-T horacic Spine Nuvasive Inc [id number] / / Nuvasive Inc Cage Spinal Modulus Cervical 1c56u81bh 7 Deg [id number] - [id number] Implanted:Qty: 1 on 06/21/2024 at [facility] N/A: Spine Cervical Nuvasive Inc 04/20/2029 [id number] / / [id number] Nuvasive Inc Screw Spinal Anterior Cervical Self Drilling Solid Acp 3.5x15mm [id number] - [id number] Implanted:Qty: 4 on 06/21/2024 by Leo Law MD at [facility] N/A: Spine Cervical Nuvasive Inc [id number] / / [id number] Implanted:Qty: 1 on 06/21/2024 by Leo Law MD at [facility] N/A: Spine Cervical Globus Medical [id number] / / Explanted Type Area 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 Device Identifier Shelf Expiration Date Model / Serial / Lot Allergan [employer] Inc 709l-Qc-72-T Implant Mammary Natrelle Te Smooth 966t-Kq-25-T With Fourte - [id number] - [id number] Implanted:Qty : 1 on 03/13/2021 by Erika Chris MD at [facility] Explanted:Qty : 1 on 05/15/2021 by Erika Chris MD at [facility] Breast Right: Breast [employer] [id number] 08/14/2024 133S-MX-1 5-T / [id number] / [id number] All[employer] 284u-Pj-89-T Implant Mammary Natrelle Te Smooth 424p-Rh-76-T With Fourte - [id number] - [id number] Implanted:Qty : 1 on 03/13/2021 by Erika Chris MD at [facility] Explanted:Qty : 1 on 06/11/2022 by Erika Chris MD at [facility] Breast Left: Breast [employer] [id number] 07/23/2024 133S-MX-1 5-T / [id number] / [id number] [employer] Implant Mammary Natrelle Te Smooth 044f-Gn-17-T With Fourte 500i-Ex-62-T - [id number] - [id number] Implanted:Qty : 1 on 12/11/2021 by Erika Chris MD at [facility] Explanted:Qty : 1 on 06/11/2022 by Erika Chris MD at [facility] Breast Right: Breast [employer] [id number] 12/18/2024 133S-MX-1 5-T / [id number] / [id number] [employer] Natrelle Inspira Cohesive Implant 800cc Breast Sterile Latex Free Scx-800 - [id number] - [id number] Implanted:Qty : 1 on 06/11/2022 by Erika Chris MD at [facility] Explanted:Qty : 1 on 06/11/2023 by Pablo Cerna MD at [facility] Breast Left: Breast [employer] [id number] 12/04/2026 SCX-800 / [id number] / [id number], 800cc All[employer] Natrelle Inspira Smooth Shell Surface Full Profile Implant 770cc Latex Free Ssf-770 - [id number] - [id number] Implanted:Qty : 1 on 06/11/2023 by Pablo Cerna MD at [facility] Explanted:Qty : 1 on 08/06/2023 by Pablo Cerna MD at [facility] Breast Left: Breast Kymberly Usa Inc 04/03/2027 [facility]770 / [id number] / [id number] Description:Implant pause do ne prior to opening Procedures Procedure Name Priority Date/Time Associated Diagnosis Comments XR SPINE CERVICAL COMPLETE 4 OR 5 VW Schedule Routine, Read Routine (OP Routine) 10/20/2024 8:11 AM CDT Cervical disc disorder with radiculopathy of cervical region 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 region Radiculopathy of cervical region EGFR Routine 09/16/2024 10:23 AM TEMPLATE CLERK Malignant neoplasm of axillary tail of left breast in female, estrogen receptor positive (HCC) [facility] current use of aromatase inhibitor COMPREHENSIVE METABOLIC PANEL Routine 09/16/2024 10:23 AM TEMPLATE CLERK Malignant neoplasm of axillary tail of left breast in female, estrogen receptor positive (HCC) 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 us Maverick Alvin SUERO IMG XR PROCEDURES Final R esult * eGFR (09/16/2024 10:23 AM TEMPLATE CLERK) eGFR >90 >=60 mL/min/1. 73 m2 Comment: [...] of Race in Diagnosing Kidney Disease, JASN 2020). The CKD-EPI equation should not be used for patients with unstable renal function and has not been validated in children and those over 70. Current interpretive data was last reviewed 2021. Blood 09/16/2024 10:2 3 AM TEMPLATE CLERK 09/16/2024 10:26 AM TEMPLATE CLERK Rajesh Hull MD LAB BLOOD ORDERABLES Final Result Performing Organization Address City/[facility]/ZIP Co de Phone Number [facility] Department [place] [address] * Vitamin D 25 hydroxy (09/16/2024 10:23 AM TEMPLATE CLERK) Pathologist [facility] Vitamin D 25-OH 33 30 - 80 ng/mL Blood 09/16/2024 10:2 3 AM TEMPLATE CLERK 09/16/2024 10:26 AM TEMPLATE CLERK Rajesh Hull MD LAB BLOOD ORDERABLES Final Result Performing Organization Address [facility] de Phone Number [facility] [place] [address] * Comprehensive metabolic panel (09/16/2024 10:23 AM TEMPLATE CLERK) Pathologist [facility] Sodium 142 135 - 145 mmol/L Potassium, pl 4.1 3.3 - 4.9 mmol/L [facility] Chloride 106 97 - 110 mmol/L [facility] CO2 29 22 - 32 mmol/L [facility] Anion gap 7 2 - 15 mmol/L [facility] BUN 12 6 - 25 mg/dL [facility] Creatinine 0.63 0.60 - 1.10 mg/dL [facility] Glucose 96 70 - 199 mg/dL [facility] Comment: Interpretive Data Fasting glucose >/= 126 [...] 2022. Calcium 9.8 8.5 - 10.3 mg/dL [facility] Bilirubin, total 0.4 0.1 - 1.2 mg/dL [facility] Protein, pl 7.0 6.5 - 8.5 g/dL [facility] Albumin 4.1 3.5 - 5.0 g/dL [facility] Alk phos 93 40 - 130 Units/L [facility] ALT 18 7 - 45 Units/L [facility] AST 20 10 - 45 Units/L [facility] Blood 09/16/2024 10:2 3 AM TEMPLATE CLERK 09/16/2024 10:26 AM TEMPLATE CLERK us Rajesh Hull MD LAB BLOOD ORDERABLES Final Result [facility] Department [place] [address] * Dexa Axial Skeleton Bone Density 1 or 2 Site (09/08/2023 8:36 AM TEMPLATE CLERK) Anatomical Region Laterality Modality Body N/A Radiographic Usha ging Narrative 09/08/2023 8:48 AM TEMPLATE CLERK Patient Name: Rhona Chapin Date of : 1960 Date of scan: 09/08/2023 Bone mineral density was performed on a [employer] Discovery Densitometer. Based on machine cross-calibration and [...] by the International Society of Clinical Densitometry. [id number] us Rajesh Hull MD IMG DXA PROCEDURES Final R esult from Last 3 Months or Most Recently Relevant to Health Maintenance Insurance ANTHEM ACCESS CHOICE [facility] CHOICE PLUS BLUE [employer] OOS ANTHEM TRADITIONAL ANTHEM ACCESS CHOICE Advance Directives For more information, please contact: [phone] * Full Code (Latest Code Status on [...] 8:29 PM 03/15/2021 8:58 PM Care Teams Floating Operator Relationship Specialty Start Date End Date Antonia Bethea MD PCP - General 12/18/15 Petrona Draper NP Nurse Practitioner Nurse Practitioner 01/05/21 Marsha Henry MD PhD [address] [facility] [address] [place] [address] Radiation Oncologist Radiation Oncology 04/10/21 Rajesh Hull MD [address] [place] [address] Medical Oncologist/Realtime Court Reporter Medical Oncology 02/22/21
--- OUTSIDE RECORDS SUMMARY | 2024-11-30 09:06 | XMS_ITS | Clinical Summary ---
Author Organization [facility] Address [address] [place] [id number] Care Team Providers Care Circulating Nurse Name Role Phone Unavailable Primary Care Provider Unavailabl e Allergies Active Allergy Reactions Criticality Noted Date Comments Clonidine Delirium Medium 02/28/2021 Made me nuts Docetaxel Anxiety,Other (See Comments) Low 05/31/2021 Back pain reported during infusion Medications Cholecalciferol , Vitamin D3, 50 mcg (2,000 unit) Capsule Take 2,000 Units by mouth daily. Active docusate sodium (COLACE) 100 mg capsule 4 Active biotin 10 mg Tablet Take 10 mg by mouth. Active acetaminophen (TYLENOL) 500 mg Capsule Take 1,000 mg by mouth one time as needed for Pain, Moderate. 3 Active letrozole (FEMARA) 2.5 mg tablet Take 2.5 mg by mouth daily. 3 Active VITAMIN B COMPLEX ORAL Take 1 Capsule by mouth daily in the morning. Active esomeprazole (NexIUM) 20 mg Capsule, Delayed Release(E.C.) Take 20 mg by mouth every 12 hours. Active hydroCHLOROthia zide 12.5 mg tablet Take 12.5 mg by mouth daily. Active metoprolol succinate (TOPROL XL) 25 mg Extended Release 24 hour tablet Take 25 mg by mouth daily. Active zoledronic acid (ZOMETA IV) Inject by intravenous injection. Active Active Problems Problem Noted Date Diagnosed Date Bilateral Knee Osteoarthritis 09/03/2024 Bilateral Chondromalacia Patella 09/03/2024 Encounters Date Type Department Care Team Description 10/14/2024 4:15 PM CDT Office Visit [facility] [address] [address] [place] [address] Frank Mena MD Bilateral Knee Osteoarthritis (Primary Dx); Bilateral Chondromalacia Patella; H/O Bilateral Mastectomy (BRACII) 02/2021 Dr Garcia, Dr Chris, Dr Cerna, Dr Hull (Oncologist) 10/13/2024 External Device Data [facility] ABSTRACTION Provider, Abstract 10/06/2024 External Device Data [facility] ABSTRACTION Provider, Abstract 10/05/2024 External Device Data [facility] ABSTRACTION Provider, Abstract 10/02/2024 External Device Data [facility] ABSTRACTION Provider, Abstract 10/01/2024 External Device Data [facility] ABSTRACTION Provider, Abstract 09/29/2024 External Device Data [facility] ABSTRACTION Provider, Abstract 09/29/2024 External Device Data [facility] ABSTRACTION Provider, Abstract 09/15/2024 External Device Data [facility] ABSTRACTION Provider, Abstract from Last 3 Months Immunizations Immunization Administration Dates Next Due INFLUENZA VACCINE QUADRIVALENT 6 MOS UP PF IM Family History Medical History Relation Name Comments Hypertension Father COPD Mother Relation Name Status Comments Father Mother Social History Tobacco Use Types Packs/Day Years Used Date Smoking Tobacco: Former Cigarettes 0 12/08/1992 - 11/26/1975 Smokeless Tobacco: Never Tobacco Cessation:Counseling Given: Not Answered Alcohol Use Standard Drinks/Week Comments Yes 0 (1 standard drink = 0.6 oz pur e alcohol) Comments No Sex and Gender Information Value Date Recorded Sex Assigned at Not on file Legal Sex Female 8:47 AM CDT Gender Identity Not on file Sexual Orientation Not on file Last Filed Vital Signs Vital Sign Reading Time Taken Comments Blood Pressure - - Pulse - - Temperature - - Respiratory Rate - - Oxygen Saturation - - Inhaled Oxygen Concentration - - Weight 99.8 kg (220 lb) 10/14/2024 4:41 PM CDT Height 172.7 cm (5' 8 ) 10/14/2024 4:41 PM CDT Body Mass Index 33.45 10/14/2024 4:41 PM CDT Plan of Treatment Upcoming Encounters Date Type Department Care Team (Late st Contact Info) Description 01/19/2025 3:30 PM CDT Office Visit [facility] Medicine [address] [place] [id number] Frank Mena MD [address] [facility] [address] [place] [address] Health Maintenance Due Date Last Done Comments Pre-Diabetes and Diabetes Screening 1960 COLORECTAL SCREENING 11/17/2004 Colorectal Cancer Screening 11/17/2004 FIT-DNA Q 3 years 11/17/2004 FIT/FOBT Q 1 year 11/17/2004 Flex Sig/CT Colonography Q 5 years 11/17/2004 PNEUMOCOCCAL VACCINE 50+ YEA RS (1 of 1 - PCV) 11/17/2009 ZOSTER VACCINE (1 of 2) 11/17/2009 INFLUENZA VACCINE (#1) 2024 , 04/18/2020, 08/27/2018 COVID-19 Vaccine (5 - 2023-2 5 season) 2024 11/28/2021, 04/30/2021, 10/15/2020, Additional history exists DTAP/TDAP/TD VACCINES (2 - T d or Tdap) 04/25/2026 04/25/2016 OSTEOPOROSIS SCREENING 09/08/2028 09/08/2023, 2020 RSV VACCINE (60+ or ) (1 - 1-dose 75+ series) 11/17/2034 Insurance BLUE ACCESS CHOICE
--- NOTE | 2024-11-30 11:00 | NEURO_ITS ---
Impression: # Complains of weakness of left hand. Non-diabetic. Status post C- spine surgery 06/20. ? # No responses obtained from left median motor. ? # Left ulnar nerve poor responses. ? # Absent F-waves. ? # Abnormal needle/EMG exam with involvement of proximal and distal muscles though no active fibs. ? # Clinical correlation recommended; Likely related to higher involvement. Nerve Conduction Studies Anti Sensory Summary Table ?Stim Site NR Peak (ms) P-T Amp (?V) Site1 Site2 Delta-P (ms) Dist (cm) Eric (m/s) Left Median Anti Sensory (2-3nd Digit) Wrist ? 3.1 8.1 Wrist 2-3nd Digit 3.1 14.0 45 Wrist ? 3.1 18.3 Wrist 2-3nd Digit 3.1 14.0 45 Left Radial Anti Sensory (Base 1st Digit) Wrist ? 2.3 27.8 Wrist Base 1st Digit 2.3 0.0 Left Ulnar Anti Sensory (5th Digit) Wrist ? 2.6 14.9 Wrist 5th Digit 2.6 14.0 54 Motor Summary Table ?Stim Site NR Onset (ms) O-P Amp (mV) Site1 Site2 Delta-0 (ms) Dist (cm) Eric (m/s) Left Median Motor (Abd Poll Brev)??? NO RESPONSE Wrist NR Elbow Wrist 26.0 Elbow NR Left Ulnar Motor (Abd Dig Minimi) Wrist ? 3.7 0.5 A Elbow Wrist 5.2 30.0 58 A Elbow ? 8.9 0.1 B Elbow Wrist 5.6 24.0 43 B Elbow ? 9.3 0.1 F Wave Studies ?NR F-Lat (ms) L-R F-Lat (ms) Left Median (Mrkrs) (Abd Poll Brev)??? NO RESPONSE NR Left Ulnar (Mrkrs) (Abd Dig Min)??? NO RESPONSE NR EMG ?Side Muscle Nerve Root Ins Act Fibs Amp Dur Recrt Comment Left 1stDorInt Ulnar C8-T1 Nml Nml Nml >12ms +1 Left Ext Indicis Radial (Post Int) C7-8 Nml Nml Nml >12ms +1 Left Ext Digitorum Radial (Post Int) C7-8 Nml Nml Nml >12ms +1 Left BrachioRad Radial C5-6 Nml Nml Nml >12ms +1 Left PronatorTeres Median C6-7 Nml Nml Nml >12ms +1 Left Abd Poll Brev Median C8-T1 Nml Nml Nml >12ms +1 Left ABD Dig Min Ulnar C8-T1 Nml Nml Nml >12ms +1 Left FlexPolLong Median (Ant Int) C7-8 Nml Nml Nml >12ms +1 Left Abd Poll Long Radial (Post Int) C7-8 Nml Nml Nml >12ms +1 Left Biceps Musculocut C5-6 Nml Nml Nml >12ms +1 Left Triceps Radial C6-7-8 Nml Nml Nml >12ms +1 Left Deltoid Axillary C5-6 Nml Nml Nml >12ms +1 MTDD
== END 2024-11-30 08:45 | disposition home or self-care (01) ==
LOC: ANHNEURO 08:45
PROVIDERS: PCP Family Medicine; Visit Provider Family Medicine
DX: M62.542 Muscle wasting and atrophy, not elsewhere classified, left hand (principal); R94.131 Abnormal electromyogram [EMG]
CPT/HCPCS: 95886; 95909